=== PATIENT | female | born 1930 | race Two or more races ===

== ENCOUNTER 2020-08-30 11:29 | Inpatient (IN) | payer OTHER ==
[~2020-08-30] VITALS: Ht 154.9 cm; Wt 67.4 kg
[2020-08-30 14:48] LABS: Albumin 3.1 g/dL (3.4-5.0); Chloride 97 mmol/L (98-107); Potassium 3.6 mmol/L (3.5-5.1); Sodium 131 mmol/L (136-145)
[2020-08-30 14:51] LABS: Basophils # (auto) 0 10 ^3/uL (0-0.2); Basophils % (auto) 0.2 % (0.0-2.0); Eosinophils # (auto) 0 10 ^3/uL (0-0.8); Hematocrit 38.8 % (36.0-46.0); Hemoglobin 13.4 g/dL (12.2-16.2); Lymphocytes # (auto) 0.2 10 ^3/uL (0.4-5.4); Lymphocytes % (auto) 3.5 % (10.0-50.0); Mean Corpuscular Hemoglobin 31.5 pg (28.0-32.0); Mean Corpuscular Hgb Conc. 34.6 g/dL (32.0-36.0); Mean Corpuscular Volume 91.1 fL (80.0-100.0); Monocytes # (auto) 0.3 10 ^3/uL (0-1.3); Monocytes % (auto) 4.9 % (0.0-12.0); Neutrophils # (auto) 5.9 10 ^3/uL (1.6-8.6); Neutrophils % (auto) 91.4 % (37.0-80.0); Platelet Count (auto) 227 10^3/uL (140-450); Red Blood Cells 4.25 10^6/uL (4.0-5.20); White Blood Cell 6.5 10^3/uL (4.4-10.8)
[2020-08-30 14:52] LABS: Alanine Aminotransferase 50 U/L (13-56); Anion Gap 9 (5-15); Aspartate Aminotransferase 56 U/L (15-37); BUN/Creatinine Ratio 22.4; Blood Urea Nitrogen 17 mg/dL (7-18); Carbon Dioxide 25 mmol/L (21-32); GFR African American 92 mL/min; GFR Non-African American 76 mL/min; Glucose 101 mg/dL (74-106)
[2020-08-30 14:56] LABS: INR 1.03 (0.9-1.15); Partial Thromboplastin Time 29.9 sec (23.0-31.2)
[2020-08-30 15:06] LABS: Alkaline Phosphatase 80 U/L (45-117); Bilirubin, Total 0.5 mg/dL (0.2-1.0); Total Protein 7.3 g/dL (6.4-8.2)
[2020-08-30] MEDS ORDERED: DexAMETHasone SOD PHOS 10MG/1ML VIAL INJ IV ONE (15:45)
[2020-08-30] MEDS ORDERED: AZITHROMYCIN 500MG/ 250ML 250 ML IV ONE (15:45)
[2020-08-30] MEDS ORDERED: REMDESIVIR PER PHARMACY 0 ML IV SCH (16:00)
[2020-08-30] MEDS ORDERED: MORPHINE SULF INJ 2 MG/ML SYRINGE 1ML IV PRN ×2 (16:00)
[2020-08-30] MEDS ORDERED: HYDROcodone-ACET 5/325MG TAB PO PRN (16:00)
[2020-08-30] MEDS ORDERED: ONDANSETRON HCL 4 MG/2 ML VIAL IV PRN (16:00)
[2020-08-30] MEDS ORDERED: guaiFENesin-DM 100/10mg/5ml SYR PO PRN (16:00)
[2020-08-30] MEDS ORDERED: NITROGLYCERIN 0.4 MG SL TAB SL PRN (16:00)
[2020-08-30] MEDS ORDERED: ACETAMINOPHEN 500 MG TAB PO PRN (16:00)
[2020-08-30] MEDS ORDERED: REMDESIVIR 200 MG in NS 210ml LOADING DOSE ADULT IV ONE (20:00)
[2020-08-30 20:48] LABS: CRP High Sensitivity 6.79 mg/dL (< 0.3)
[2020-08-30] MEDS: ENOXAPARIN SOD 40 MG/0.4 ML SYRINGE SC SCH (22:00)
[2020-08-30] MEDS: BUDESONIDE (INHALATION) 180 MCG IH IN SCH (22:00)
[2020-08-31 06:43] LABS: Basophils # (auto) 0 10 ^3/uL (0-0.2); Basophils % (auto) 0.4 % (0.0-2.0); Eosinophils # (auto) 0 10 ^3/uL (0-0.8); Hematocrit 35.6 % (36.0-46.0); Hemoglobin 12.3 g/dL (12.2-16.2); Lymphocytes # (auto) 0.4 10 ^3/uL (0.4-5.4); Lymphocytes % (auto) 9.3 % (10.0-50.0); Mean Corpuscular Hemoglobin 30.9 pg (28.0-32.0); Mean Corpuscular Hgb Conc. 34.6 g/dL (32.0-36.0); Mean Corpuscular Volume 89.3 fL (80.0-100.0); Monocytes # (auto) 0.3 10 ^3/uL (0-1.3); Monocytes % (auto) 6.2 % (0.0-12.0); Neutrophils # (auto) 3.5 10 ^3/uL (1.6-8.6); Neutrophils % (auto) 84.1 % (37.0-80.0); Nucleated Red Blood Cells % 0.1 %; Platelet Count (auto) 221 10^3/uL (140-450); Red Blood Cells 3.99 10^6/uL (4.0-5.20); Red Cell Distribution Width 13.1 % (11.8-14.3); White Blood Cell 4.2 10^3/uL (4.4-10.8)
[2020-08-31 06:53] LABS: Potassium 3.4 mmol/L (3.5-5.1)
[2020-08-31 07:02] LABS: Albumin 2.7 g/dL (3.4-5.0); BUN/Creatinine Ratio 21.9; Bilirubin, Total 0.3 mg/dL (0.2-1.0); Calcium 8.2 mg/dL (8.5-10.1); Total Protein 6.4 g/dL (6.4-8.2)
[2020-08-31] MEDS: ENOXAPARIN SOD 40 MG/0.4 ML SYRINGE SC SCH ×2 (10:00→22:06)
[2020-08-31] MEDS: CHOLECALCIFEROL (VITD3) 2,000 UNIT CAP PO SCH (13:54)
[2020-08-31] MEDS: DexAMETHasone SOD PHOS 10MG/1ML VIAL INJ IV SCH (13:54)
[2020-08-31] MEDS: ASCORBIC ACID 1,000 MG TAB PO SCH (13:54)
[2020-08-31] MEDS: AZITHROMYCIN 500MG/ 250ML 250 ML IV SCH (13:54)
[2020-08-31] MEDS: BUDESONIDE (INHALATION) 180 MCG IH IN SCH ×2 (13:55→22:00)
[2020-08-31] MEDS: FAMOTIDINE 20 MG TAB PO SCH (13:55)
[2020-08-31] MEDS: ZINC SULFATE 220mg CAP or TAB PO SCH (13:55)
[2020-08-31] MEDS: cefTRIAXone 1GM/50ML D5W 50 ML IV SCH (14:38)
[2020-08-31] MEDS: REMDESIVIR 100 MG in SODIUM CHL 0.9% 250 ML IV SCH (16:00)
[2020-08-31 22:54] VITALS: BP 105/48
[2020-09-01] VITALS: BP 104/49
[2020-09-01 06:59] LABS: Potassium 3.7 mmol/L (3.5-5.1)
[2020-09-01 07:09] LABS: Albumin 2.6 g/dL (3.4-5.0); BUN/Creatinine Ratio 29.7; Bilirubin, Total 0.4 mg/dL (0.2-1.0); Calcium 8.4 mg/dL (8.5-10.1); Total Protein 6.6 g/dL (6.4-8.2)
[2020-09-01 08:00] VITALS: BP 113/54
[2020-09-01] MEDS: cefTRIAXone 1GM/50ML D5W 50 ML IV SCH (09:37)
[2020-09-01] MEDS: BUDESONIDE (INHALATION) 180 MCG IH IN SCH ×4 (10:00→22:14)
[2020-09-01] MEDS: ZINC SULFATE 220mg CAP or TAB PO SCH (10:06)
[2020-09-01] MEDS: DexAMETHasone SOD PHOS 10MG/1ML VIAL INJ IV SCH (10:07)
[2020-09-01] MEDS: FAMOTIDINE 20 MG TAB PO SCH (10:08)
[2020-09-01] MEDS: ENOXAPARIN SOD 40 MG/0.4 ML SYRINGE SC SCH ×2 (10:09→22:12)
[2020-09-01] MEDS: CHOLECALCIFEROL (VITD3) 2,000 UNIT CAP PO SCH (10:09)
[2020-09-01] MEDS: ASCORBIC ACID 1,000 MG TAB PO SCH (10:09)
[2020-09-01] MEDS: AZITHROMYCIN 500MG/ 250ML 250 ML IV SCH (10:13)
[2020-09-01 16:00] VITALS: BP 112/53
[2020-09-01] MEDS: REMDESIVIR 100 MG in SODIUM CHL 0.9% 250 ML IV SCH (16:36)
[2020-09-01 16:37] VITALS: BP 114/55
[2020-09-01 16:52] VITALS: BP 120/57
[2020-09-01 17:53] VITALS: BP 115/56
[2020-09-02] VITALS: BP 102/48
[2020-09-02 08:00] VITALS: BP 111/51
[2020-09-02] MEDS: cefTRIAXone 1GM/50ML D5W 50 ML IV SCH (08:40)
[2020-09-02 09:12] LABS: Albumin 2.7 g/dL (3.4-5.0); Calcium 8.8 mg/dL (8.5-10.1); Potassium 3.7 mmol/L (3.5-5.1)
[2020-09-02 09:22] LABS: BUN/Creatinine Ratio 32.8; Bilirubin, Total 0.3 mg/dL (0.2-1.0); Total Protein 6.7 g/dL (6.4-8.2)
[2020-09-02] MEDS: FAMOTIDINE 20 MG TAB PO SCH (10:00)
[2020-09-02] MEDS: AZITHROMYCIN 500MG/ 250ML 250 ML IV SCH (10:17)
[2020-09-02] MEDS: CHOLECALCIFEROL (VITD3) 2,000 UNIT CAP PO SCH (10:18)
[2020-09-02] MEDS: DexAMETHasone SOD PHOS 10MG/1ML VIAL INJ IV SCH (10:18)
[2020-09-02] MEDS: ASCORBIC ACID 1,000 MG TAB PO SCH (10:19)
[2020-09-02] MEDS: ENOXAPARIN SOD 40 MG/0.4 ML SYRINGE SC SCH ×2 (10:19→21:18)
[2020-09-02] MEDS: ZINC SULFATE 220mg CAP or TAB PO SCH (10:30)
[2020-09-02] MEDS: BUDESONIDE (INHALATION) 180 MCG IH IN SCH ×2 (14:25→20:31)
[2020-09-02 15:45] VITALS: BP 121/76
[2020-09-02] MEDS: REMDESIVIR 100 MG in SODIUM CHL 0.9% 250 ML IV SCH (15:46)
[2020-09-02 16:00] VITALS: BP_SYST 115; BP_SYST 120; BP_DIAS 54; BP_DIAS 58
[2020-09-02] MEDS: ALBUTEROL SULF HFA 90MCG INH 200DOSE IN PRN (20:31)
[2020-09-03 00:06] VITALS: BP 119/49
[2020-09-03 07:56] LABS: Potassium 3.2 mmol/L (3.5-5.1)
[2020-09-03 08:00] VITALS: BP 123/45
[2020-09-03 08:10] LABS: Albumin 2.4 g/dL (3.4-5.0); BUN/Creatinine Ratio 32.7; Bilirubin, Total 0.3 mg/dL (0.2-1.0); Calcium 7.9 mg/dL (8.5-10.1); Total Protein 5.7 g/dL (6.4-8.2)
[2020-09-03] MEDS: cefTRIAXone 1GM/50ML D5W 50 ML IV SCH (09:10)
[2020-09-03] MEDS: ASCORBIC ACID 1,000 MG TAB PO SCH (09:29)
[2020-09-03] MEDS: DexAMETHasone SOD PHOS 10MG/1ML VIAL INJ IV SCH (09:29)
[2020-09-03] MEDS: ZINC SULFATE 220mg CAP or TAB PO SCH (09:29)
[2020-09-03] MEDS: FAMOTIDINE 20 MG TAB PO SCH (09:30)
[2020-09-03] MEDS: ENOXAPARIN SOD 40 MG/0.4 ML SYRINGE SC SCH ×2 (09:30→21:24)
[2020-09-03] MEDS: CHOLECALCIFEROL (VITD3) 2,000 UNIT CAP PO SCH (09:30)
[2020-09-03] MEDS: BUDESONIDE (INHALATION) 180 MCG IH IN SCH ×2 (10:00→22:06)
[2020-09-03] MEDS: AZITHROMYCIN 500MG/ 250ML 250 ML IV SCH (10:25)
[2020-09-03] MEDS ORDERED: POTASSIUM CHL 20 Meq TABLET PO ONE (11:00)
[2020-09-03] MEDS ORDERED: FUROSEMIDE 20 MG/2 ML VIAL IV ONE (11:00)
[2020-09-03] MEDS: REMDESIVIR 100 MG in SODIUM CHL 0.9% 250 ML IV SCH (15:24)
[2020-09-03 16:00] VITALS: BP 114/48
[2020-09-04] VITALS: BP 117/61
[2020-09-04 08:00] VITALS: BP 149/101
[2020-09-04] MEDS: POTASSIUM EFFERVESENT TAB 25 MEQ PO SCH (10:00)
[2020-09-04] MEDS: BUDESONIDE (INHALATION) 180 MCG IH IN SCH ×2 (10:59→11:01)
[2020-09-04] MEDS: cefTRIAXone 1GM/50ML D5W 50 ML IV SCH (10:59)
[2020-09-04] MEDS: ZINC SULFATE 220mg CAP or TAB PO SCH (11:00)
[2020-09-04] MEDS: AZITHROMYCIN 500MG/ 250ML 250 ML IV SCH (11:00)
[2020-09-04] MEDS: DexAMETHasone SOD PHOS 10MG/1ML VIAL INJ IV SCH (11:00)
[2020-09-04] MEDS: FAMOTIDINE 20 MG TAB PO SCH (11:00)
[2020-09-04] MEDS: ASCORBIC ACID 1,000 MG TAB PO SCH (11:00)
[2020-09-04] MEDS: CHOLECALCIFEROL (VITD3) 2,000 UNIT CAP PO SCH (11:01)
[2020-09-04] MEDS: ALBUTEROL SULF HFA 90MCG INH 200DOSE IN PRN (11:01)
[2020-09-04] MEDS: ENOXAPARIN SOD 40 MG/0.4 ML SYRINGE SC SCH ×2 (11:01→22:10)
[2020-09-04] MEDS: FUROSEMIDE 20 MG/2 ML VIAL IV SCH (11:04)
[2020-09-04 16:00] VITALS: BP 108/61
[2020-09-05] VITALS: BP 114/49
[2020-09-05 08:00] VITALS: BP 120/58
[2020-09-05 08:00] LABS: Magnesium 2.2 mg/dL (1.6-2.6); Potassium 4.1 mmol/L (3.5-5.1)
[2020-09-05] MEDS: cefTRIAXone 1GM/50ML D5W 50 ML IV SCH (08:30)
[2020-09-05] MEDS: ENOXAPARIN SOD 40 MG/0.4 ML SYRINGE SC SCH ×2 (10:00→22:00)
[2020-09-05] MEDS: BUDESONIDE (INHALATION) 180 MCG IH IN SCH ×2 (10:00→20:42)
[2020-09-05] MEDS: POTASSIUM EFFERVESENT TAB 25 MEQ PO SCH (10:00)
[2020-09-05] MEDS: DexAMETHasone SOD PHOS 10MG/1ML VIAL INJ IV SCH (11:13)
[2020-09-05] MEDS: ASCORBIC ACID 1,000 MG TAB PO SCH (11:13)
[2020-09-05] MEDS: ZINC SULFATE 220mg CAP or TAB PO SCH (11:13)
[2020-09-05] MEDS: FAMOTIDINE 20 MG TAB PO SCH (11:13)
[2020-09-05] MEDS: CHOLECALCIFEROL (VITD3) 2,000 UNIT CAP PO SCH (11:14)
[2020-09-05] MEDS: AZITHROMYCIN 500MG/ 250ML 250 ML IV SCH (11:15)
[2020-09-05] MEDS: FUROSEMIDE 20 MG/2 ML VIAL IV SCH (11:15)
[2020-09-05] MEDS ORDERED: CHOL1CAP47 PO (13:22)
[2020-09-05] MEDS ORDERED: ASCO10003 PO (13:22)
[2020-09-05] MEDS ORDERED: DOXY-286 PO (13:25)
[2020-09-05] MEDS ORDERED: ASPI-378 PO (13:25)
[2020-09-05] MEDS ORDERED: PANT40TA2 PO (13:25)
[2020-09-05] MEDS ORDERED: BUDE2SUS3 IN (13:25)
[2020-09-05] MEDS ORDERED: METH4PAK PO (13:25)
[2020-09-05] MEDS ORDERED: ZINC220T6 PO (13:25)
[2020-09-05] MEDS ORDERED: ALBUAER3 IN (13:25)
[2020-09-05 16:00] VITALS: BP 151/79
[2020-09-05 17:30] VITALS: BP 120/58
[2020-09-05] MEDS: ALBUTEROL SULF HFA 90MCG INH 200DOSE IN PRN (20:42)
[2020-09-06] VITALS: BP 114/55
[2020-09-06 08:00] VITALS: BP 104/52
[2020-09-06] MEDS: ALBUTEROL SULF HFA 90MCG INH 200DOSE IN PRN (09:42)
[2020-09-06] MEDS: BUDESONIDE (INHALATION) 180 MCG IH IN SCH (09:42)
[2020-09-06] MEDS: ENOXAPARIN SOD 40 MG/0.4 ML SYRINGE SC SCH (10:00)
[2020-09-06] MEDS: AZITHROMYCIN 500MG/ 250ML 250 ML IV SCH (10:00)
[2020-09-06] MEDS: ZINC SULFATE 220mg CAP or TAB PO SCH ×2 (10:00→11:24)
[2020-09-06] MEDS: ASCORBIC ACID 1,000 MG TAB PO SCH (10:00)
[2020-09-06] MEDS: FUROSEMIDE 20 MG/2 ML VIAL IV SCH (10:00)
[2020-09-06] MEDS: cefTRIAXone 1GM/50ML D5W 50 ML IV SCH (11:23)
[2020-09-06] MEDS: FAMOTIDINE 20 MG TAB PO SCH (11:24)
[2020-09-06] MEDS: DexAMETHasone SOD PHOS 10MG/1ML VIAL INJ IV SCH (11:24)
[2020-09-06] MEDS: POTASSIUM EFFERVESENT TAB 25 MEQ PO SCH (11:24)
[2020-09-06] MEDS: CHOLECALCIFEROL (VITD3) 2,000 UNIT CAP PO SCH (11:25)
== END 2020-09-06 16:05 | disposition home or self-care (01) | DRG 871 ==
LOC: ER 11:29 → TELE 11:30 → TELE-WESTW 08-31 20:39
PROVIDERS: ADMIT Nurse Practitioner Acute Care; ATTEND Internal Medicine
PROC: XW033E5 Introduction of Remdesivir Anti-infective into Peripheral Vein, Percutaneous Approach, New Technology Group 5 (ICD-10-PCS; principal; 2020-08-30)
DX: A41.89 Other specified sepsis (principal); U07.1 COVID-19; J12.89 Other viral pneumonia; J96.01 Acute respiratory failure with hypoxia; D68.59 Other primary thrombophilia; E87.1 Hypo-osmolality and hyponatremia; I10 Essential (primary) hypertension; E87.6 Hypokalemia; E55.9 Vitamin D deficiency, unspecified; R65.20 Severe sepsis without septic shock; R73.9 Hyperglycemia, unspecified; H91.90 Unspecified hearing loss, unspecified ear; Z87.891 Personal history of nicotine dependence; Z90.710 Acquired absence of both cervix and uterus; Z88.5 Allergy status to narcotic agent
CPT/HCPCS: 36415; 71045; 80053; 82306; 82728; 83605; 83615; 83735; 84132; 84443; 84484; 85025; 85379; 85610; 85730; 86141; 87040; 87426; 87804; 94640; 96365; 96375; G0378; J0696; J1100; J2405